=== PATIENT | male | born 1940 | race Caucasian/White ===

== ENCOUNTER 2018-01-13 12:52 | Outpatient (CLI) | payer MEDICARE, OTHER ==
--- NOTE | 2018-01-13 16:10 | Ultrasound Report ---
Reason: RIGHT CAROTID STENOSIS Procedure Date: 01/13/2018 Accession Number: [id number] / [id number] Procedure: US - Carotid Doppler Complete CPT Code: FULL RESULT: EXAM: BILATERAL CAROTID AND VERTEBRAL ARTERY DUPLEX DOPPLER ULTRASOUND: EXAM DATE: 01/13/2018 02:49 PM CLINICAL HISTORY: Right carotid stenosis. COMPARISON: None. TECHNIQUE: Grayscale imaging, color Doppler, and duplex spectral Doppler were used to evaluate the carotid and vertebral arteries bilaterally. Static images were obtained. FINDINGS: The right common carotid artery demonstrates intimal thickening leading to mild plaque into the right carotid bifurcation. There is echogenic shadowing at the carotid bifurcation as well as in the right internal carotid artery which somewhat limits visual evaluation. The left common carotid artery demonstrates intimal thickening with mild focal hypoechoic and echogenic plaque at the left carotid bulb and focal less than 50% echogenic atherosclerosis within the left internal carotid artery. Brisk upstrokes are preserved in both carotid systems throughout. 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 VELOCITIES (cm/sec): Right CCA mid: PSV 86.2 cm/sec CCA dist: PSV 76.2 cm/sec ICA prox: PSV 64.4 cm/sec, EDV 10.6 cm/sec ICA mid: PSV 63.7 cm/sec, EDV 18.5 cm/sec ICA dist: PSV 65.6 cm/sec, EDV 17.8 cm/sec ECA: Not seen. Vert: PSV 52.8 cm/sec ICA/CCA: 0.76 Left CCA mid: PSV 93.2 cm/sec CCA dist: PSV 79.3 cm/sec ICA prox: PSV 34.7 cm/sec, EDV 10.3 cm/sec ICA mid: PSV 41.0 cm/sec, EDV 12.2 cm/sec ICA dist: PSV 47.4 cm/sec, EDV 13.2 cm/sec ECA: PSV 42.3 cm/sec Vert: PSV 44.6 cm/sec ICA/CCA: 0.51 ICA diameter stenosis: Right: <50% by velocity and <70% by NASCET criteria. Left: <50% by velocity and <70% by NASCET criteria. IMPRESSION: 1. Visually difficult evaluation of the right carotid artery system, likely status post endarterectomy with bilateral carotid artery plaquing which is most pronounced in the carotid bulbs. 2. In the right carotid artery there are no elevated carotid artery velocities to suggest hemodynamically significant stenosis. 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 3. In the left carotid artery there are no elevated carotid artery velocities to suggest hemodynamically significant stenosis. 4. Normal antegrade flow is present in bilateral vertebral arteries. General Recommendations: Stenosis =50% ICA - Follow-up ultrasound 6-12 months Stenosis <50% ICA - High Risk Patient with plaque - Follow-up ultrasound 1-2 years Normal Study but High Risk Patient - Follow-up ultrasound 3-5 years Management recommendations and diagnostic criteria are based on current IAC endorsed standards in Carotid Artery Stenosis: Grayscale and Doppler Ultrasound Diagnosis. Validated velocity measurements with angiographic measurements and velocity criteria are extrapolated from diameter data as defined by the Society of Radiologists in Ultrasound Consensus Conference Radiology 2003; 229;340-346. RADIA
== END 2018-01-13 12:53 | disposition home or self-care (01) ==
LOC: DI 12:52
PROVIDERS: ATTEND Surgery Vascular Surgery
DX: I65.21 Occlusion and stenosis of right carotid artery (principal)
CPT/HCPCS: 93880

== ENCOUNTER 2020-05-15 08:00 | Outpatient (CLI) | payer MEDICARE, OTHER ==
[2020-05-15 10:53] LABS: BASOPHILS # (AUTO) 0.1 10^3/uL (0.0-0.1); BASOPHILS % (AUTO) 1.1 %; EOSINOPHILS # (AUTO) 0.3 10^3/uL (0.0-0.7); EOSINOPHILS % (AUTO) 6.7 %; HGB - HEMOGLOBIN 12.6 g/dL (14.0-18.0); LYMPHOCYTES # (AUTO) 2.1 10^3/uL (1.5-3.5); LYMPHOCYTES % (AUTO) 44.6 %; MEAN CORPUSCULAR HEMOGLOBIN 31.7 pg (27.0-31.0); MEAN CORPUSCULAR HGB CONC 33.1 g/dL (32.0-36.0); MEAN CORPUSCULAR VOLUME 95.7 fL (80.0-94.0); MEAN PLATELET VOLUME 9.5 fL (7.4-11.4); MONOCYTES # (AUTO) 0.3 10^3/uL (0.0-1.0); MONOCYTES % (AUTO) 6.7 %; NEUTROPHILS # (AUTO) 1.9 10^3/uL (1.5-6.6); NEUTROPHILS % (AUTO) 40.7 %; PLT - PLATELET COUNT 141 10^3/uL (130-450); RED BLOOD COUNT 3.98 10^6/uL (4.70-6.10); RED CELL DISTRIBUTION WIDTH 13.3 % (12.0-15.0); WHITE BLOOD COUNT 4.6 x10^3/uL (4.8-10.8)
[2020-05-15 11:50] LABS: CALCIUM 9.7 mg/dL (8.5-10.3); CREATININE 1.1 mg/dL (0.6-1.2)
== END 2020-05-15 23:59 | disposition home or self-care (01) ==
LOC: LAB 08:00
PROVIDERS: ATTEND Student in an Organized Health Care Education/Training Program
DX: D64.9 Anemia, unspecified (principal); I10 Essential (primary) hypertension
CPT/HCPCS: 36415; 80048; 82728; 83540; 84403; 84466; 85025

== ENCOUNTER 2021-03-19 11:01 | Outpatient (CLI) | payer MEDICARE, OTHER, MEDICAID ==
--- NOTE | 2021-03-20 10:31 | Ultrasound Report ---
PROCEDURE: Carotid Doppler Complete INDICATIONS: RIGHT CAROTID STENOSIS TECHNIQUE: Color and pulse Doppler interrogation was performed of both carotid systems, with image documentation and velocity measurements. COMPARISON: None. FINDINGS: Right side: Brachial blood pressure: 128/66 mm Hg. Common carotid artery peak systolic velocity: 80.9 cm/s, previously 86.2 cm/sec. Internal carotid artery peak systolic velocity: 51 cm/s, previously 65.6 cm/sec. Internal carotid artery end diastolic velocity: 15.4 cm/s, previously 17.8 cm/sec. External carotid artery peak systolic velocity: 59.9 cm/sec. ICA/CCA peak systolic ratio: 0.7 . Hood scale imaging description: Scattered heterogeneous plaque, mild stenosis. Percent internal carotid artery stenosis: Less than 50% by peak systolic velocity criteria Vertebral artery: Flow direction is antegrade. Left side: Brachial blood pressure: 131/69 mm Hg. Common carotid artery peak systolic velocity: 92.2 cm/s, previously 93.2 cm/sec. Internal carotid artery peak systolic velocity: 62.8 cm/s, previously 47.4 cm/sec. Internal carotid artery end diastolic velocity: 16.8 cm/s, previously 13.2 cm/sec. External carotid artery peak systolic velocity: 73.9 cm/s, previously 42.3 cm/sec. ICA/CCA peak systolic ratio: 0.7 . Hood scale imaging description: Scattered heterogeneous plaque, mild, less than 50% stenosis. Percent internal carotid artery stenosis: Less than 50% by peak systolic velocity criteria . Vertebral artery: Flow direction is antegrade. IMPRESSION: Stable examination. Mild bilateral, less than 50% internal carotid artery stenosis. The estimate of stenosis included in the report of the imaging study was calculated using the NASCET method Reviewed by: David Aguilar MD on 03/20/2021 10:30 AM PST Approved by: David Aguilar MD on 03/20/2021 10:30 AM PST Station ID: [id number]
== END 2021-03-19 11:02 | disposition home or self-care (01) ==
LOC: DI 11:01
PROVIDERS: ATTEND Surgery Vascular Surgery
DX: I65.23 Occlusion and stenosis of bilateral carotid arteries (principal)
CPT/HCPCS: 93880

== ENCOUNTER 2022-03-16 14:36 | Outpatient (CLI) | payer MEDICAID, MEDICARE ==
--- NOTE | 2022-03-17 09:24 | Ultrasound Report ---
PROCEDURE: Carotid Doppler Complete INDICATIONS: CAROTID STENOSIS TECHNIQUE: Color and pulse Doppler interrogation was performed of both carotid systems, with image documentation and velocity measurements. COMPARISON: None. FINDINGS: Right side: Brachial blood pressure: 138/71 mm Hg. Common carotid artery peak systolic velocity: 111 cm/sec. Internal carotid artery peak systolic velocity: 73 cm/sec. Internal carotid artery end diastolic velocity: 22 cm/sec. External carotid artery peak systolic velocity: 112 cm/sec. ICA/CCA peak systolic ratio: 0.7 . Hood scale imaging description: There is a stent in the right common carotid artery Percent internal carotid artery stenosis: Less than 50% . Vertebral artery: Flow direction is antegrade. Left side: Brachial blood pressure: 140/74 mm Hg. Common carotid artery peak systolic velocity: 98 cm/sec. Internal carotid artery peak systolic velocity: 74 cm/sec. Internal carotid artery end diastolic velocity: 14 cm/sec. External carotid artery peak systolic velocity: 77 cm/sec. ICA/CCA peak systolic ratio: 0.8 . Hood scale imaging description: Moderate plaque at the bulb Percent internal carotid artery stenosis: Less than 50% . Vertebral artery: Flow direction is antegrade. IMPRESSION: 1. No significant interval change. Stent noted in the right common carotid artery 2. Less than 50% bilaterally by velocity/ratio criteria. The estimate of stenosis included in the report of the imaging study was calculated using the NASCET method Reviewed by: Wade Whitley on 03/17/2022 9:23 AM [facility] Approved by: Wade Whitley on 03/17/2022 9:23 AM PST Station ID: [id number]
== END 2022-03-16 14:37 | disposition home or self-care (01) ==
LOC: DI 14:36
PROVIDERS: ATTEND Surgery Vascular Surgery
DX: I65.21 Occlusion and stenosis of right carotid artery (principal); Z95.828 Presence of other vascular implants and grafts
CPT/HCPCS: 93880